=== PATIENT | female | born 1975 | race Caucasian/White ===

== ENCOUNTER 2017-01-28 05:14 | Day surgery (SDC) | payer MEDICAID ==
[2017-01-26 12:47] LABS: APPEARANCE,URINE CLOUDY; BILIRUBIN,URINE NEGATIVE (NEGATIVE); GLUCOSE, URINE NEGATIVE (NEGATIVE); KETONES,URINE NEGATIVE (NEGATIVE); LEUKOCYTE ESTERASE,URINE TRACE (NEGATIVE); NITRITE,URINE NEGATIVE (NEGATIVE); PROTEIN,URINE 100 mg/dL (NEGATIVE); UROBILINOGEN,URINE NEGATIVE mg/dL (<2.0)
[2017-01-26 12:50] LABS: HEMATOCRIT 39.1 % (36.0-47.0); HEMOGLOBIN 12.9 g/dL (12.0-15.5); HGB HCT DIFFERENCE -0.4; MEAN CORPUSCULAR HEMOGLOBIN 25.8 pg (27.0-33.4); MEAN CORPUSCULAR VOLUME 78 fl (80-97); RED CELL DISTRIBUTION WIDTH 25.9 % (11.5-14.0)
[2017-01-26 13:03] LABS: ANION GAP 13 (5-19); BLOOD UREA NITROGEN 9 mg/dL (7-20); CALCIUM 9.4 mg/dL (8.4-10.2); CARBON DIOXIDE 24 mmol/L (22-30); CHLORIDE 106 mmol/L (98-107); CREATININE RESULT 0.66 mg/dL (0.52-1.25); GLUCOSE 96 mg/dL (75-110); POTASSIUM 4.5 mmol/L (3.6-5.0); SODIUM 142.9 mmol/L (137-145)
[~2017-01-28 05:14] MED LIST: CEFAZOLIN 1 GM/D5W RTU 1 GM/50 ML RTUPB IV PRN; LACTATED RINGERS 1000 ML IV PRN; LIDOCAINE 0.5% INJ-PF (5 MG/ML) 50 ML SDV SUBCUT PRN
[2017-01-28] MEDS ORDERED: LIDOCAINE 1% INJ-PF (10 MG/ML) 30 ML SDV ONE (06:01)
[2017-01-28] MEDS ORDERED: FENTANYL CITRATE INJ/PF 100 MCG/2 ML AMPUL ONE (07:03)
[2017-01-28] MEDS ORDERED: LIDOCAINE 2% INJ-PF (20 MG/ML) 10 ML AMPUL ONE (07:03)
[2017-01-28] MEDS ORDERED: IBUPROFEN INJ 800 MG/8 ML VIAL IV ONE (07:03)
[2017-01-28] MEDS ORDERED: DEXAMETHASONE SOD PHOSPHATE INJ 4 MG/1 ML VIAL ONE (07:03)
[2017-01-28] MEDS ORDERED: ONDANSETRON HCL INJ/PF 4 MG/2 ML SDV ONE (07:03)
[2017-01-28] MEDS ORDERED: PROPOFOL INJ 200 MG/20 ML VIAL IV ONE (07:03)
[2017-01-28] MEDS ORDERED: MIDAZOLAM 2 MG/2 ML INJ ONE (07:13)
[2017-01-28] MEDS ORDERED: KETOROLAC TROMETHAMINE INJ/PF 30 MG/1 ML SDV ONE (09:09)
[2017-01-28] MEDS ORDERED: PROMETHAZINE HCL INJ 50 MG/1 ML VIAL IM PRN (09:12)
[2017-01-28] MEDS ORDERED: ONDANSETRON HCL INJ/PF 4 MG/2 ML SDV IV PRN (09:13)
[2017-01-28] MEDS ORDERED: FENTANYL CITRATE INJ/PF 100 MCG/2 ML AMPUL IV PRN ×3 (09:13)
[2017-01-28] MEDS ORDERED: OXYCODONE-ACETAMINOPHEN 5-325 MG TABLET PO PRN (09:13)
[2017-01-28] MEDS ORDERED: HYDROMORPHONE HCL 2 MG TABLET PO PRN (09:13)
[2017-01-28] MEDS ORDERED: DIPHENHYDRAMINE HCL 50 MG/ML VIAL IV PRN (09:13)
[2017-01-28] MEDS ORDERED: MORPHINE SULFATE 10 MG/ML INJ IV PRN (09:13)
[2017-01-28] MEDS ORDERED: MEPERIDINE HCL/PF INJ 25 MG/1 ML DISP.SYRIN IV PRN (09:13)
--- NOTE | 2017-01-28 09:14 | OPERATIVE REPORT E ---
Operative Report NAME: GLENROY GERMAN : 1975 AGE: 41Y DATE OF SURGERY: 01/28/2017 ROOM: PREOPERATIVE DIAGNOSIS: Menorrhagia. POSTOPERATIVE DIAGNOSIS: Menorrhagia. PROCEDURES: 1. Operative hysteroscopy. 2. Endometrial resection. 3. Novasure ablation. SURGEON: SAMANTHA LYNN M.D. The region of the resection approximately 90% of the endometrium was affected by cautery as well as the resection. INDICATIONS FOR PROCEDURE: The patient had *------* transfusion. Outpatient management was unsuccessful and she desired definitive therapy to include an ablation. No guarantees regarding future outcome of the procedure were made to the patient. Risk of bleeding, infection, anesthesia, and damage to organs and tissues were discussed and the patient understood. PROCEDURE: The patient was taken to the operating room and placed in the modified lithotomy position after adequate anesthesia ascertained, prepped and draped in the usual manner for an operative hysteroscopy and Novasure ablation. Surgical timeout was performed, EUA performed. Bladder was left undrained. Cervix was identified and grasped with a single-toothed tenaculum and dilated to admit an operative hysteroscope. The uterine measurements were taken, length of 4.0 cm, a width of 2.7 cm, and Novasure device was placed uneventfully and 59 seconds of power was used for 1 minute and 14 seconds. Rehysteroscopy to confirm burn was performed and uterine integrity was confirmed. The fundal portion of the burn was incomplete as indicated by photograph. Endometrial resection in this area ensued and this was reasonably successful in ablation of this area thought to be resection. At completion of procedure, all instruments were removed and bleeding was nil. The patient was taken to recovery in stable condition. DICTATING PHYSICIAN: SAMANTHA LYNN M.D. [id number] PHY#: [id number] ID: [id number] JOB#: [id number] ACCT: [id number] cc:SAMANTHA LYNN M.D. >
[2017-01-28] MEDS ORDERED: IBUPROFEN 800 MG TABLET PO SCH (10:00)
[2017-01-28 11:15] VITALS: BP 126/78
== END 2017-01-28 11:10 | disposition home or self-care (01) ==
LOC: OROUT 05:14
PROVIDERS: ATTEND Specialist
PROC: 0U5B8ZZ Destruction of Endometrium, Via Natural or Artificial Opening Endoscopic (ICD-10-PCS; principal; 2017-01-28 07:15)
DX: N92.0 Excessive and frequent menstruation with regular cycle (principal); K21.9 Gastro-esophageal reflux disease without esophagitis; F17.210 Nicotine dependence, cigarettes, uncomplicated; Z79.899 Other long term (current) drug therapy
CPT/HCPCS: 36415; 85027; 81025; 80048; 81001; 71010; 58563; J2250; J0690; J1100; J3010; J3490 ×2; J1885; J2405; J2704; J1741; 952